=== PATIENT | female | born 1990 | race Caucasian/White ===

== ENCOUNTER 2019-02-12 04:24 | Inpatient (IN) | payer BC ==
[2019-02-12] VITALS (64 sets, daily range): BP systolic 99–199; BP diastolic 57–110; PULSE 61–136; TEMP 97.8–99.5
[2019-02-12] MEDS ORDERED: PRENATAL MVI (05:05)
--- NOTE | 2019-02-12 06:30 | NUR ---
Assume care of patient. Rests in bed, alert. Breathes through contractions.
--- NOTE | 2019-02-12 07:00 | NUR ---
0715 Dr. Malone updated on patient. Let him know that she is having elevated blood pressures.174/112, 153/93, 163/103, States to admit patient, can have epidural if desires.
--- NOTE | 2019-02-12 08:00 | NUR ---
Rests in bed, alert. Iv start to right hand. Iv fluids of lactated ringers infusing. Pen g 5 million units iv given as ordered and per protocol.
[2019-02-12 08:17] LABS: BASO # 0.1 (0.0-0.2); BASO % 0.3 % (0.0-2.0); EOS # 0.1 (0.0-0.7); EOS % 0.5 % (0-4.0); GRAN # 13.4 (1.4-6.5); HEMOGLOBIN 12.7 g/dl (12.5-16.0); LYMPH % 17.2 % (20.0-51.0); MEAN CELL VOLUME 84 fl (80.0-100.0); MEAN CORPUSCULAR HEMOGLOBIN 28 pg (27.0-31.0); MEAN CORPUSCULAR HGB CONC 33 g/dl (33.0-37.0); MEAN PLATELET VOLUME 11.2 fl (7.4-10.4); MONO # 0.9 (0.1-0.6); PLATELET COUNT 215 K/mm3 (130-400); RED BLOOD COUNT 4.53 M/mm3 (4.10-5.30); REDCELL DISTRIBUTION WIDTH-CV 14.4 % (11.5-14.5)
--- NOTE | 2019-02-12 08:30 | NUR ---
Request epidural, anesthesia notified. 0850 Anesthesia here, visits with patient. Sits up for epidural. 0904 Space obtained, and catheter placed by anesthesia Norberto. 0905 Test dose given by anesthesia.
--- NOTE | 2019-02-12 09:00 | NUR ---
Continues to sit up for epidural.
--- NOTE | 2019-02-12 09:15 | NUR ---
Lies down after epidural. Repositioned in bed.
--- NOTE | 2019-02-12 09:30 | NUR ---
0939 See physicians notification please. Alpresoline 10 mg iv given as ordered by Dr. Malone. States feeling better since epidural.
[2019-02-12 09:39] LABS: ALBUMIN 3.4 gm/dL (3.5-5.0); BILIRUBIN,TOTAL 0.8 mg/dL (0.0-1.0); CALCIUM 9.4 mg/dL (8.4-10.2); CREATININE, serum 0.58 (0.52-1.25); POTASSIUM 4.3 mmol/L (3.4-5.0); TOTAL PROTEIN 6.8 gm/dL (6.4-8.2)
--- NOTE | 2019-02-12 10:15 | NUR ---
In room with patient. States feeling lightheaded, and sick. Head of bed down, fluid bolus given. B/P 99/57 then 108/60. States feeling better. Cool wash cloth given, fan on. heart tones down in the seventys for thirty seconds. This was shown to Dr. Malone.
--- NOTE | 2019-02-12 10:30 | NUR ---
1040 Dr. Malone here. 1041Arom done, moderate amount of clear fluid noted. Pad changed.
--- NOTE | 2019-02-12 11:56 | NUR ---
Second dose of pen g 2.5 million units iv given as ordered.
--- NOTE | 2019-02-12 12:30 | NUR ---
1240 Apresoline 5 mg iv given as ordered for elevated blood pressures. 169/103,169/82,171/99. See physicians notification please.
--- NOTE | 2019-02-12 14:00 | NUR ---
Having late decels. Pitocin off, o28L on.
--- NOTE | 2019-02-12 14:45 | NUR ---
Rests in bed, alert. States feeling sick. Container given, 400 ccs of green color emisis noted. Fan on, cool wash cloth given.
--- NOTE | 2019-02-12 15:00 | NUR ---
Pushes with contractions. Mother and spouse at bedside.
--- NOTE | 2019-02-12 15:45 | NUR ---
Rests at this time. Dr. Malone called and updated. Let him know that heart tones [id number] with pushing. Let him know that patients temperature 99.5 and feels warm. States will be up.
--- NOTE | 2019-02-12 15:57 | NUR ---
Pen g 2.5 million units iv given as ordered and per protocol.
--- NOTE | 2019-02-12 16:00 | NUR ---
Pen g 2.4 million units iv given as ordered and per policy. Not pushing at this time.
--- NOTE | 2019-02-12 16:15 | NUR ---
Dr. Malone here. Prepps for delivery. 1623 Vaccum on, pushes with contractions, no pop offs noted. 1627 Vaccum on, pushes with contractions, no pop offs noted. 1629 Vaccum on, no pop offs. 1632 Vaccum on, pushes with contractions. 1633 Delivery of baby girl by Dr. Malone. [address] Malone. Pitocin 333ccs started as ordered and per protocol.
--- NOTE | 2019-02-12 16:50 | NUR ---
Rests in bed, alert, holds baby lovingly, family at bedside.
--- NOTE | 2019-02-12 17:35 | NUR ---
Rests in bed, alert. Family at bedside. Denies any needs at this time.
--- NOTE | 2019-02-12 17:58 | NUR ---
Procardia xl 60 mg p.o. given as ordered.
--- NOTE | 2019-02-12 19:11 | NUR ---
BP 163/85; 10 mg Labetalol given IV, see 1919 - improvement in BP 136/74
--- NOTE | 2019-02-12 20:17 | NUR ---
2004 - BP 162/91 2016 - 10 mg Labetalol IV given, see 2034 - BP remains elevated, 169/79 2036 - Repeat dose of Labetalol given, see 2104 - BP improved at 152/91, will recheck in 1 hour.
--- NOTE | 2019-02-12 22:44 | NUR ---
2239 - BP 190/104 2244 - 10 mg IV Labetalol given 2302 - BP 169/89 2309 - 10 mg IV Labetalol given 2322 - BP improved 150/73, Will recheck in 1 hour.
[2019-02-13] VITALS (8 sets, daily range): BP systolic 125–140; BP diastolic 62–89; PULSE 79–107; TEMP 97.5–98.3
--- NOTE | 2019-02-13 09:12 | NUR ---
Initial visit attempt; Patient out of room, Derrick Man left card of congratulations for the of daughter and information regarding the availability of spiritual care at [facility].
--- NOTE | 2019-02-14 07:30 | NUR ---
Rests in bed, alert. Denies any needs at this time.
[2019-02-14 08:45] VITALS: BP 136/87; PULSE 102; TEMP 97.9
[2019-02-14] MEDS ORDERED: PERCOCET 325 MG1 TA2 PO (09:32)
[2019-02-14] MEDS ORDERED: PROCARDIA XL90 MG PO (09:32)
[2019-02-14] MEDS ORDERED: IBU800 M1 PO (09:32)
--- NOTE | 2019-02-14 14:30 | NUR ---
Rests in bed, alert. Request motrin. Motrin 800 mg given as ordered.
--- NOTE | 2019-02-14 16:30 | NUR ---
1642 Discharge instructions given, verbalizes understanding.
== END 2019-02-14 17:20 | disposition home or self-care (01) | DRG 806 ==
LOC: LDRO 04:24 → LDR 04:30 → LDRO 07:29 → LDR 07:30 → OB 02-13 05:15 → LDRO 02-17 17:19
PROVIDERS: Obstetrics & Gynecology; ADMIT Student in an Organized Health Care Education/Training Program
PROC: 10D07Z6 Extraction of Products of Conception, Vacuum, Via Natural or Artificial Opening (ICD-10-PCS; principal; 2019-02-12)
PROC: 0UQGXZZ Repair Vagina, External Approach (ICD-10-PCS; 2019-02-12)
DX: O10.92 Unspecified pre-existing hypertension complicating childbirth (principal); O71.4 Obstetric high vaginal laceration alone; Z37.0 Single live birth; O99.824 Streptococcus B carrier state complicating childbirth; O75.81 Maternal exhaustion complicating labor and delivery; O69.1XX0 Labor and delivery complicated by cord around neck, with compression, not applicable or unspecified; O99.214 Obesity complicating childbirth; Z3A.39 39 weeks gestation of pregnancy
CPT/HCPCS: J0360; J2540; J2590; J7120